=== PATIENT | female | born 1980 | race Caucasian/White ===

== ENCOUNTER 2023-02-16 08:41 | Outpatient (CLI) | payer OTHER | END 2023-02-16 08:56 | disposition home or self-care (01) | LOC: MRI 08:41 | PROVIDERS: ATTEND Obstetrics & Gynecology Gynecologic Oncology | DX: C53.0 Malignant neoplasm of endocervix (principal) | CPT/HCPCS: 72197 ==

== ENCOUNTER 2023-03-10 08:45 | Inpatient (IN) | payer OTHER ==
[~2023-03-10] VITALS: Ht 157.5 cm; Wt 74.8 kg
== END 2023-03-14 09:37 | disposition home or self-care (01) | DRG 741 ==
LOC: OB/GYN 03-12 06:21 → O/R 03-12 06:21 → SURH 03-12 08:45 → OB/GYN 03-12 16:48
PROVIDERS: ADMIT Obstetrics & Gynecology Gynecologic Oncology; ATTEND Obstetrics & Gynecology Gynecologic Oncology
PROC: 0UT50ZZ Resection of Right Fallopian Tube, Open Approach (ICD-10-PCS; 2023-03-12)
PROC: 0UT00ZZ Resection of Right Ovary, Open Approach (ICD-10-PCS; 2023-03-12)
PROC: 07BC0ZZ Excision of Pelvis Lymphatic, Open Approach (ICD-10-PCS; 2023-03-12)
PROC: 0UT90ZZ Resection of Uterus, Open Approach (ICD-10-PCS; principal; 2023-03-12 12:00)
DX: C54.1 Malignant neoplasm of endometrium (principal); Z20.822 Contact with and (suspected) exposure to COVID-19